=== PATIENT | female | born 1990 | race Caucasian/White ===

== ENCOUNTER 2017-05-14 14:27 | Inpatient (IN) | payer BC, OTHER ==
[~2017-05-14] VITALS: Ht 149.9 cm; Wt 42.7 kg
--- NOTE | ~2017-05-14 | EKG ---
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
--- NOTE | ~2017-05-14 | HC ---
[facility] [place] [address] CONSULTATION Name: HARPREET NÚÑEZ Room #: 422-P ADM IN M.R.#: [id number] Admission: 05/14/17 Attend Phys: Te Londono MD Discharge: Date of : [birth year] Report #: [id number] THIS REPORT FOR: //name// CC: SASHA physician/PCP Te Londono DATE OF SERVICE: 05/15/2017 INFECTIOUS DISEASE CONSULTATION REASON FOR CONSULTATION: Right arm cellulitis, fever. HISTORY OF PRESENT ILLNESS: A 26-year-old white woman with multiple underlying medical problems and some behavior issues that include chronic pain syndrome. She was admitted with history of fever and intermittent pain and swelling of right forearm that apparently may have started after an IV access at [facility]. The patient is very difficult historian and is telling me that she does not want this and does not want that and any suggestions I have as to how to proceed with the physical exam, she tells me she does not want to lay down. She does not want to answer this question or the other question and she does not want the IV that is ongoing now. Anyhow, most of the patient's history is extracted from review of old records. Apparently, she tells me she was admitted because of low potassium and cellulitis, right forearm. PAST MEDICAL HISTORY: Fibromyalgia. Costochondritis. She tells me she may have rheumatoid arthritis and also systemic lupus. She has chronic pain syndrome and she had been on multiple medications in the past. Recently, she had been on treatment for UTI with what she tells me is Keflex. 1. Tonsillectomy. 2. Rheumatoid arthritis. 3. Systemic lupus. 4. Depression. 5. Fibromyalgia. 6. Costochondritis. DRUG ALLERGIES: CIPROFLOXACIN, TRAMADOL, ONDANSETRON, ARMODAFINIL. MEDICATIONS: The patient is currently on treatment with hydromorphone 2 mg q.6h p.r.n. by mouth, nicotine 14 mg transdermal daily, pantoprazole 40 mg b.i.d., duloxetine 120 mg daily, vancomycin 750 IV every 12 hours, promethazine 12.5 mg IV every 6 hours, alprazolam 0.5 mg b.i.d., carisoprodol 350 mg b.i.d., acetaminophen 650 mg q.4h p.r.n., intravenous fluids 1000 mL every 10 hours. SOCIAL HISTORY: See old records [facility]. FAMILY HISTORY: [place] [address] CONSULTATION Name: HARPREET NÚÑEZ Room #: 422-P [facility] IN [facility].#: [id number] Admission: 05/14/17 Attend Phys: Te Londono MD Discharge: Date of : [birth year] Report #: [id number] REVIEW OF SYSTEMS: Generalized body aches and pain; pain, right wrist; swelling, right wrist; fevers. PHYSICAL EXAMINATION: GENERAL: Chronically ill-appearing white woman, unwilling to undress for the physical exam, unwilling to have armpits examined, unwilling to lay down to be examined. VITAL SIGNS: Temperature 101.1, pulse 110, respirations 17, BP 104/50. HEENMT: Within range. NECK: Supple. LUNGS: Clear. HEART: S1, S2. ABDOMEN: Soft. EXTREMITIES: No pretibial edema, clubbing, cyanosis. There is some swelling and tenderness and drainage on the dorsal aspect of right forearm previous IV access site. There is some induration of the left distal forearm as well. NEUROLOGIC: Grossly within normal limits. LABORATORY DATA: Sodium 135, potassium 2.9, CO2 of 24, BUN 7, creatinine 0.6, glucose 166. Review of old records indicates she had positive hepatitis C antibodies and positive hepatitis C by PCR. Discussed this issue with the patient and her mother, and I am advised that she was checked by another physician and she was advised she was clear of infection. ASSESSMENT: 1. Right forearm cellulitis secondary to IV access, likely due to methicillin-resistant Staphylococcus aureus infection. 2. Chronic pain syndrome. 3. History of hepatitis B infection, possibly secondary to intravenous drug use. SUGGESTIONS: Recommend obtain CRP and ESR. Continue vancomycin. We will evaluate a hepatitis C infection on an outpatient basis. Dr. Londono, thank you for requesting my suggestions in the care of your patient. <ELECTRONICALLY SIGNED> By: Kai Mari MD 05/16/17 1156 1221 1448 Kai Mari MD /nt
--- NOTE | ~2017-05-14 | EKG ---
[address] [address] ELECTROCARDIOGRAM REPORT Name: HARPREET NÚÑEZ Room #: 245-P 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 : 1990 Requested By: Austin Bynum Order Number: [id number] MD: Contreras Mari Measurements Intervals [place] Rate: 109 P: 69 [place]: 120 QRS: 60 QRSD: 81 T: 9 QT: 321 QTc: 433 Interpretive Statements Sinus tachycardia Borderline repolarization abnormality Compared to ECG 06/28/2016 07:55:29 T-wave abnormality no longer present Electronically Signed On 05-21-2017 21:21:26 CDT by Contreras Mari [email or web address] <ELECTRONICALLY SIGNED> By: Contreras Mari MD 05/21/17 2121 1557 1557 Contreras Mari MD /[facility]
--- NOTE | ~2017-05-14 | HC ---
[facility] [place] [address] CONSULTATION Name: HARPREET NÚÑEZ Room #: 422-P ADM IN M.R.#: [id number] Admission: 05/14/17 Attend Phys: Te Londono MD Discharge: Date of : [birth year] Report #: [id number] THIS REPORT FOR: //name// CC: [facility] physician/PCP Te Londono DATE OF SERVICE: 05/15/2017 ATTENDING PHYSICIAN: Te Londono MD. REASON FOR CONSULTATION: Right arm cellulitis, question abscess. HISTORY OF PRESENT ILLNESS: This is a 26-year-old female patient with a history of fibromyalgia and chronic pain who reports right arm erythema and pain starting 2 weeks ago after an IV was placed in that area with worsening of her symptoms started 1 week ago. She was seen in the [facility] with erythema, edema and a small amount of purulent drainage from her right arm. She was also found to be hypokalemic. She underwent an right upper extremity, where she was found to have no evidence for a DVT. However, a small amount of focal edema and/or potential early developing fluid collection was seen with a developing abscess not excluded. A reactive right antecubital lymph node was also seen. I have been asked to see the patient for further evaluation and treatment. PAST MEDICAL AND SURGICAL HISTORY: Includes chronic pain, fibromyalgia, depression, arthritis, lupus, costochondritis, and previous tonsillectomy. MEDICATIONS: Include Dilaudid nicotine patch, pantoprazole, Paxil, vancomycin, promethazine, alprazolam, and carisoprodol. ALLERGIES: CIPRO, TRAMADOL, ZOFRAN, ARMODAFINIL. FAMILY HISTORY: Reviewed and noncontributory. SOCIAL HISTORY: The patient reports a pack of cigarettes daily. Denies use of alcohol and has a history of recreational drug use. She is accompanied by her mother. REVIEW OF SYSTEMS: As per history of present illness. In addition: GENERAL: The patient has had a recent fever as high as 102 degrees. Denies unintentional weight loss. HEENT: Denies changes in taste, vision, hearing, or smell. RESPIRATORY: Denies shortness of breath, COPD or asthma. CARDIOVASCULAR: Denies chest pain or palpitations. GASTROINTESTINAL: Denies abdominal pain, nausea or vomiting. GENITOURINARY: Denies dysuria, urgency, increased urinary frequency or [facility] [address] [place] [address] CONSULTATION Name: HARPREET NÚÑEZ Room #: 422-P [facility] IN ..#: [id number] Admission: 05/14/17 Attend Phys: Te Londono MD Discharge: Date of : [birth year] Report #: [id number]. MUSCULOSKELETAL: Complains of bilateral forearm pain, right greater than left. Right forearm shows erythema with edema and a less than 1 cm ulcerated area with a small amount of serous drainage, no pus was seen. The area is dressed with a bandage. NEUROLOGIC: Denies headaches, numbness or tingling. PSYCHIATRIC: Denies suicidal ideations. SKIN AND INTEGUMENTARY: Denies new skin lesions. Reports erythema of bilateral arms (see HPI). LABORATORY DATA: Most recent labs are from yesterday with the CBC showing a white blood cell count 10.4, hemoglobin 12.2, hematocrit 36.0, and platelets 309. Electrolytes showed a sodium of 135, potassium 2.9, chloride 100, CO2 24, BUN 7, creatinine 0.6 and glucose 166. Magnesium was 2.1. RADIOLOGIC STUDIES: Right upper extremity ultrasound findings are as noted above; two view films of the forearm yesterday showed swelling in the soft tissues without fracture or foreign body. IMPRESSION AND PLAN: This is a 26-year-old female patient with the above listed comorbidities, most notably fibromyalgia and chronic pain, who has bilateral (right greater than left) forearm erythema. She may be developing abscess; however, she does not appear to have an abscess at this time, but rather cellulitis. Should she clinically worsen, I would repeat an ultrasound and if a definite fluid collection is present, the patient may benefit from an incision and drainage procedure. I discussed the plan with the patient and her mother. They expressed understanding. I will follow along with serial exams as well as labs/x-rays as appropriate. I sincerely appreciate the opportunity to participate in the care of this patient and will leave further recommendations and orders in the EMR as appropriate. <ELECTRONICALLY SIGNED> By: Siddharth Phillips MD, FACS 05/15/17 2138 1628 1826 Siddharth Phillips MD, FACS /nt
--- NOTE | ~2017-05-14 | EKG ---
[address] [address] ELECTROCARDIOGRAM REPORT Name: HARPREET NÚÑEZ Room #: [address] [place] [address] IN M.R.#: [id number] Admission: 05/14/17 Attend Phys: Te Londono MD Discharge: 05/16/17 Date of : [birth year] Report #: [id number] THIS REPORT FOR: //name// 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1990 Requested By: Sonny Díaz Order Number: [id number] MD: Contreras Mari Measurements Intervals [place] Rate: 156 P: 77 PA: 111 QRS: 82 QRSD: 98 T: -31 QT: 259 QTc: 417 Interpretive Statements Sinus tachycardia Nonspecific repol abnormality, diffuse leads Compared to ECG 06/28/2016 07:55:29 Early repolarization now present T-wave abnormality no longer present Electronically Signed On 05-21-2017 21:43:08 CDT by Contreras Mari [email or web address] <ELECTRONICALLY SIGNED> By: Contreras Mari MD 05/21/17 2143 1511 1511 Contreras Mari MD /[facility]
[~2017-05-14 14:27] MED LIST: ADDERALL 20 MG20 M1 PO; APAP650 PO; B12INJ; CARISOPRODOL 3350 MG; CARISOPRODOL 3350 MG PO; CELEBREX 200 M200 M1 PO; CELEBREX50 MG PO; CLARITHROMYCIN250 M2 PO; CLEOCIN HCL300 MG PO; CLONAZEPAM 0.50.5 M1 PO; COLACE100 MG PO; COMPAZINE10 MG PO; CYMBALTA30 MG PO; CYMBALTA60 MG PO; DOXYCYCLINE 10100 MG PO; FLAGYL 250 MG250 MG PO; HYDROXYCHLOROQ200 M1 PO; IBUPROFEN 400400 M1 PO; KLOR-CON 1010 MEQ; LEXAPRO 10 MG T10 MG PO; LEXAPRO20 MG PO; LOESTRIN 24 FE1 EACH; MINASTRIN 24 F1 EACH PO; NORCO 5-325 TA1 EACH PO; NUCYNTA50 MG PO; OPANA5 MG PO; OXYCODONE HCL 55 MG PO; OXYCODONE HCL10 MG PO; OXYCONTIN CR 1010 M1 PO; OXYCONTIN10 M1 PO; PANTOPRAZOLE SO40 M1 PO; PERCOCET 5-3251 EACH PO; PERCOCET 7.5-31 EACH PO; PHENERGAN 25 MG25 M1 PO; PREDNISONE 1 MG1 M1 PO; PREDNISONE 10 M10 MG PO; PREDNISONE 20 M20 M1 PO; ROXICODONE5 M1 PO; SEROQUEL 50 MG50 M1 PO; VITAMIN D400 UNI1; XANAX 0.5 MG0.5 MG PO; XANAX 1 MG TABLE1 MG PO; XANAX1 MG PO; ZPAK PO; [UNRECOGNIZED DRUG - CODE]
[2017-05-14 14:44] VITALS: BP 116/59
[2017-05-14] MEDS ORDERED: DILAUDID 2 MG TA2 MG PO (15:08)
[2017-05-14 15:10] LABS: ABSOLUTE NEUTROPHILS 6.8 thou/uL (1.4-8.2); BASOPHILS 0.6 % (0.0-2.0); EOSINOPHILS 1.3 % (0.0-3.0); HEMOGLOBIN 12.2 gm/dL (12.0-15.0); LYMPHOCYTES 23.5 % (24.0-44.0); MCH 27.9 pg (26.0-34.0); MCHC 33.9 g/dL (28.0-37.0); MCV 82.4 fL (80.0-100.0); MONOCYTES 9.2 % (1.0-8.0); PLATELET COUNT 309 thou/uL (150-400); POLYS 65.4 % (36.0-66.0); RBC 4.36 mil/uL (4.20-5.00); RDW 15.6 % (10.5-14.5); WBC 10.4 thou/uL (4.0-11.0)
[2017-05-14 15:11] LABS: MANUAL DIFF NO
[2017-05-14] MEDS ORDERED: BACTRIM DS TAB1 EACH PO (15:11)
[2017-05-14 15:19] LABS: CALCIUM 8.7 mg/dL (8.5-10.1); CREATININE 0.6 mg/dL (0.6-1.0)
[2017-05-14 15:29] LABS: POTASSIUM 2.9 mmol/L (3.5-5.1)
[2017-05-14 16:38] VITALS: BP 115/70
[2017-05-14] MEDS ORDERED: KEFLEX500 MG PO (17:17)
[2017-05-14 17:33] VITALS: BP 97/61
[2017-05-14 17:35] VITALS: BP 93/56
[2017-05-14 19:34] VITALS: BP 102/40
[2017-05-15 03:17] VITALS: BP 117/72
[2017-05-15 07:26] VITALS: BP 104/50
[2017-05-15 15:14] VITALS: BP 110/69
[2017-05-15 19:33] VITALS: BP 107/63
[2017-05-16 03:45] VITALS: BP 102/50
[2017-05-16 08:32] VITALS: BP 102/68; BP 92/60
[2017-05-16 15:09] LABS: ABG SAMPLE TYPE ARTERIAL; BE(vivo) -24.4 mmol/L (-2 to +3); HCO3 7.3 mmol/L (22.0-26.0); LACTATE 12.59 mmol/L (0.5-2.0); O2(CT) 15.3 mL/dL (15.0-23.0); O2Hb 88.1 % (92.0-98.0); PO2 86.3 mmHg (80.0-100.0); pH 6.927 (7.360-7.450); sO2 88.7 % (92.0-98.0); tCO2 8.4 mmol/L (24.0-30.0)
[2017-05-16 15:49] LABS: CALCIUM 7.3 mg/dL (8.5-10.1); CREATININE 0.9 mg/dL (0.6-1.0); POTASSIUM 4.2 mmol/L (3.5-5.1)
[2017-05-16 15:55] LABS: ALBUMIN 1.6 g/dL (3.4-5.0); MAGNESIUM 2.2 mg/dL (1.8-2.4); TOTAL BILIRUBIN 0.5 mg/dL (<0.1-1.0); TOTAL PROTEIN 4.3 g/dL (6.4-8.2)
== END 2017-05-16 16:30 | DRG 603 ==
LOC: ER 14:27 → ICU 16:14 → 4E 16:14 → EROBS 16:14 → 4E 17:25 → ICU 05-16 15:10
PROVIDERS: Family Medicine; Nurse Practitioner
PROC: 02HV33Z Insertion of Infusion Device into Superior Vena Cava, Percutaneous Approach (ICD-10-PCS; principal; 2017-05-16)
PROC: 5A12012 Performance of Cardiac Output, Single, Manual (ICD-10-PCS; 2017-05-16)
DX: L03.113 Cellulitis of right upper limb (principal); T40.1X1A Poisoning by heroin, accidental (unintentional), initial encounter; L02.413 Cutaneous abscess of right upper limb; F17.210 Nicotine dependence, cigarettes, uncomplicated; F32.9 Major depressive disorder, single episode, unspecified; F41.9 Anxiety disorder, unspecified; J30.2 Other seasonal allergic rhinitis; E87.6 Hypokalemia; Z91.19 Patient's noncompliance with other medical treatment and regimen; M32.9 Systemic lupus erythematosus, unspecified; F15.10 Other stimulant abuse, uncomplicated; B95.61 Methicillin susceptible Staphylococcus aureus infection as the cause of diseases classified elsewhere; M06.9 Rheumatoid arthritis, unspecified; G89.4 Chronic pain syndrome; Z88.1 Allergy status to other antibiotic agents; Z90.49 Acquired absence of other specified parts of digestive tract; Z88.8 Allergy status to other drugs, medicaments and biological substances; Z88.6 Allergy status to analgesic agent; Y92.89 Other specified places as the place of occurrence of the external cause
CPT/HCPCS: 10084